=== PATIENT | female | born 1975 | race Caucasian/White ===

== ENCOUNTER 2024-03-31 22:47 | Emergency (ER) | payer OTHER, SELFPAY ==
[2024-03-31 22:48] VITALS: PULSE 105; RESP 16; TEMP 36.9; O2SAT 94; BMI 29.2
[2024-03-31 22:53] VITALS: BP 153/87
--- NOTE | 2024-03-31 22:53 | EKG12_ITS ---
Test Reason : CP Blood Pressure : */* mmHG Vent. Rate : 105 BPM Atrial Rate : 105 BPM P-R Int : 150 ms QRS Dur : 90 ms QT Int : 358 ms P-R-T Axes : 70 76 86 degrees QTcB Int : 473 ms Sinus tachycardia Nonspecific ST abnormality Abnormal ECG Confirmed by ELLY HAMEED, BREANNA ([id number]), video editor TIA BARBA ([id number]) on 04/02/2024 6:14:38 AM Referred By: Confirmed By: BREANNA SANABRIA MD
[2024-03-31 23:15] LABS: Absolute Lymphocyte Count 8.11 X10^3/uL (0.83-4.51); Absolute Neutrophil Count 12.9 X10^3/uL (2.0-7.7); Basophil# 0.11 X10^3/uL; Basophil% 0.5 % (0-1); Eosinophil# 0.29 X10^3/uL; Eosinophils% 1.2 % (0-5); Hematocrit 37.9 % (37-47); Lymphocyte # 8.11 X10^3/ul (0.83-4.51); Lymphocyte % 34.7 % (19-41); Mean Corp Hgb Conc 31.7 g/dL (32-36); Mean Corpuscular Hgb 27.9 pg (27.0-32.0); Mean Corpuscular Volume 88.1 fL (81-99); Monocyte# 1.79 X10^3/uL; Monocyte% 7.7 % (0-10); NRBC Flagged by Analyzer 0 % (0-5); Neutrophil # 12.93 X10^3/uL (2.7-7.7); Neutrophil % 55.3 % (47-70); POSITIVE DIFFERENTIAL YES; POSITIVE MORPHOLOGY YES; Platelet Count 568 K/mm3 (150-450); RBC Distribution Width CV 16.3 % (11.6-14.6); RBC Distribution Width SD 52.7 fl (35.1-43.9); White Blood Count 23.4 K/mm3 (4.4-11.0)
[2024-03-31 23:17] LABS: Differential Indicated SCAN CRITERIA MET
--- NOTE | 2024-03-31 23:17 | RAD_ITS ---
STUDY: X-RAY CHEST REASON FOR EXAM: Female, 49 years old. chest pain TECHNIQUE: Single AP portable view of the chest. COMPARISON: None. FINDINGS: The lungs are clear and expanded. There is no demonstrated pleural abnormality. There is moderate cardiac enlargement. Normal mediastinum and florence. Normal visualized pulmonary arteries. Normal visualized aortic arch and descending thoracic aorta. Normal visualized thoracic spine. Normal visualized ribs, clavicles, and shoulders. There is no demonstrated abnormality of the visualized soft tissue structures of the upper abdomen. RAD/Chest 1 View (Portable) IMPRESSION: No active disease. Cardiomegaly. Electronically Signed: Osei Mcpherson MD at 23:29 EST ,
[2024-03-31 23:37] LABS: Anion Gap 6 (5-15); BUN 4 mg/dL (7-18); BUN/Creat Ratio 9.8 RATIO (10-20); Chloride 105 mmol/L (98-107); Creatinine, Serum 0.41 mg/dL (0.55-1.02); EST Glomerular Filtration Rate 175 mL/min (>60); Est Glom Filt Rate - Afr Amer 212 mL/min (>60); Estimated Creatinine Clearance 145.47 ml/min; Glucose 130 mg/dL (74-106); Potassium 3.8 mmol/L (3.5-5.1); Sodium Level 137 mmol/L (136-145); Troponin-I HS (w/2H Reflex) 16 pg/mL (3.0-54.0)
--- NOTE | 2024-03-31 23:46 | CT_ITS ---
EXAM: CT ANGIOGRAPHY CHEST WITHOUT AND WITH INTRAVENOUS CONTRAST CLINICAL INDICATION: chest pain TECHNIQUE: Helically acquired angiography images were obtained of the chest without and with intravenous contrast. CTDIvol = ( 12.84 ) mGy, DLP = ( 441.24 ) mGycm This CT exam was performed using one or more of the following dose reduction techniques: automated exposure control, adjustment of the mA and/or kV according to patient size, and/or use of iterative reconstruction technique. MIP reconstructed images were created and reviewed. CONTRAST: IV 100mL [id number] COMPARISON: No relevant prior studies available. FINDINGS: PULMONARY ARTERIES: Unremarkable. Normal in caliber. No evidence of pulmonary embolism. No PE. AORTA: Unremarkable. No aortic aneurysm or dissection. GREAT VESSELS OF AORTIC ARCH: Unremarkable. Normal in caliber. No evidence of dissection. LUNGS AND PLEURAL SPACES: Focal parenchymal scarring at the inferior lingula and posterior lower lobes. No consolidation. Moderate centrilobular emphysema. No mass. No pleural effusion or pneumothorax. HEART: Unremarkable. No significant coronary artery calcifications. No cardiomegaly or pericardial effusion. MEDIASTINUM: Unremarkable. Esophagus is unremarkable. No hiatal hernia. No mediastinal or hilar adenopathy. THYROID: Thyroid is unremarkable. BONES/JOINTS: Degenerative changes of the spine. No unusual lytic or sclerotic lesions of bone. SOFT TISSUES: Soft tissues are unremarkable. 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 CT/CTA Chest W/WO Contrast IMPRESSION: 1. No PE, pneumonia or aortic dissection. 2. No other acute disease. 3. Ancillary findings as above. AIDOC was utilized to assist in identifying pertinent positive findings. Electronically Signed: Josep Conroy MD at 3:12 EST ,
[2024-03-31 23:48] VITALS: BP 147/99; PULSE 104; RESP 18; O2SAT 98
[2024-03-31 23:50] LABS: Differential Comment SCANNED
[2024-04-01 00:03] LABS: Magnesium 1.7 mg/dL (1.6-2.6)
[2024-04-01] MEDS: 0.9% Normal Saline (1000mL) 1,000 ML 999 ML IV (00:28)
--- NOTE | 2024-04-01 00:56 | ED.RN ---
PT. REFUSED TO HAVE IV IN LEFT WRIST USED FOR CT. NEW IV PLACED.
[2024-04-01 01:00] VITALS: PULSE 91; RESP 17; O2SAT 93
[2024-04-01 01:11] LABS: Reflex Troponin-HS? (from REC) Y
[2024-04-01] MEDS: Pregabalin 75 MG Capsule 150 MG PO (01:55)
[2024-04-01 02:00] VITALS: PULSE 96; RESP 14; O2SAT 94
[2024-04-01 02:00] LABS: Troponin-I HS 18 pg/mL (3.0-54.0)
--- NOTE | 2024-04-01 02:42 | ED.RN ---
TALKED TO CT ABOUT PROLONGED IMAGING READ TIME. RESPONSE, WE JUST CALLED THEM
[2024-04-01 03:00] VITALS: BP 139/77; PULSE 91; RESP 16; O2SAT 95
--- NOTE | 2024-04-01 03:23 | EX.ED.DYSGE1 ---
HPI History of Present Illness Chief Complaint: Chest Pain Informant: patient Narrative Narrative: Patient is a 49-year-old female with past medical history of hypertension hyperlipidemia and diabetes psoriasis and psoriatic arthritis. She states she typically lives in [place] but came up here for the holidays to visit her son. She states that she ran out of her Lyrica which she takes 3 times a day and has not had it for the past 2 days. Today she started with midsternal chest discomfort that is sharp in nature that she states radiates towards her back. She also reports feeling anxious and generalized fatigue. She denies any previous history of DVT/PE and she denies any previous need for cardiac intervention such as stent or bypass but with her recent travel and now worsening symptoms she presents for evaluation [facility] Home Medications ?Medication ?Instructions ?Recorded ?Last Taken ?Type pregabalin 150 mg capsule (Lyrica) 150 mg PO TID 14 days #42 caps 04/01/24 Unknown Rx Allergy/AdvReac Type Severity Reaction Status Date / Time bee pollen Allergy Severe Anaphylaxis Verified 03/31/24 22:54 benzonatate Allergy Intermediate Hives Verified 03/31/24 22:54 midazolam (From Versed) Allergy Intermediate SOB Verified 03/31/24 22:54 penicillin G Allergy Intermediate Hives Verified 03/31/24 22:54 shellfish derived Allergy Intermediate Anaphylaxis Verified 03/31/24 22:54 latex AdvReac Intermediate Rash Verified 03/31/24 22:54 moxifloxacin AdvReac Intermediate Abd Verified 03/31/24 22:54 cramps/diarrhea Social History Smoking Status: Never smoker [facility] ED Constitutional Constitutional ED: Denies chills or fever(s) Eyes Eyes: Denies blurry vision or change in vision ENT ENT ED: Denies sore throat Cardiovascular Cardiovascular: Reports chest pain and racing heartbeat; Denies palpitations Respiratory/Chest Respiratory/Chest: Denies cough or dyspnea Gastrointestinal Gastrointestinal: Reports nausea; Denies abdominal pain, diarrhea or vomiting Genitourinary Genitourinary ED: Denies dysuria Musculoskeletal Musculoskeletal: Reports back pain Integumentary Denies rash Neurologic Neurologic: Reports weakness; Denies headache(s) Hematologic/Lymphatic Hematologic/Lymphatic: Denies easy bleeding or easy bruising EXAM Physical Exam Const Vital Signs: 03/31/24 22:48 03/31/24 22:53 03/31/24 22:53 Temperature 98.4 F Temperature Source Oral Pulse Rate 105 H Respiratory Rate 16 Respiratory Effort Blood Pressure 153/87 H Blood Pressure Mean 109 Pulse Ox 94 Oxygen Delivery Method Room Air Room Air 03/31/24 22:53 03/31/24 23:48 04/01/24 01:00 Temperature Temperature Source Pulse Rate 104 H 91 Respiratory Rate 18 17 Respiratory Effort Normal Non-Labored Blood Pressure 147/99 H Blood Pressure Mean 115 Pulse Ox 98 93 Oxygen Delivery Method Room Air 04/01/24 02:00 04/01/24 03:00 04/01/24 03:38 Temperature 98.1 F Temperature Source Pulse Rate 96 91 91 Respiratory Rate 14 16 16 Respiratory Effort Blood Pressure 139/77 H 139/77 H Blood Pressure Mean 97 97 Pulse Ox 94 95 95 Oxygen Delivery Method Room Air Room Air Positive well nourished and well developed General Appearance ED: well developed HEENT HEENT Narrative: Normocephalic atraumatic No tongue or lip swelling no oral lesions no airway edema or compromise No signs of infection noted in the posterior pharynx Eyes PERRL and EOMs intact bilaterally General Eye ED: Negative for scleral icterus Neck supple and no JVD Neck Narrative: No nuchal rigidity or meningeal signs Chest Wall Chest Narrative: There is reproducible anterior chest wall pain with palpation but patient states this is different from the pain she has been experiencing No bony deformity or crepitance noted Resp normal respiratory effort and clear to auscultation bilaterally Cardio regular rhythm Rate: tachycardic and other Other Details: Tachycardic rate with regular rhythm No murmurs rubs or gallops Radial and carotid pulses are equal and symmetric No carotid bruit noted GI normal to inspection, nondistended, normoactive bowel sounds, non-tender, non-distended and no masses Auscultation: normoactive bowel sounds Palpation: soft Back/Spine Back/Spine Narrative: No bony deformity or step-off of the thoracic or lumbar spine no midline tenderness to palpation Extremity normal to inspection Extremity Narrative: No asymmetric edema no pitting edema negative Homans' sign bilaterally Neuro oriented x3, CN's II-XII intact bilaterally and no sensory deficits noted Sensorium / Orientation: alert Motor Exam: strength 5/5 throughout Psych Mood & Affect: anxious Skin Skin Narrative: Patient has erythematous areas of skin breakdown consistent with psoriasis No secondary findings to suggest infection MDM MDM MDM Narrative Medical decision making narrative: Patient arrived to the ER hypertensive and slightly tachycardic but otherwise with stable vitals. With her history of high blood pressure high cholesterol diabetes she does have risk factors for coronary artery disease and therefore in order to rule out acute coronary syndrome an EKG and troponin were ordered. In order to ensure there is no lung pathology causing her chest pain such as pneumonia or pneumothorax a chest x-ray was obtained as well. EKG revealed sinus tachycardia without ischemic findings. Chest x-ray revealed no acute lung pathology. Initial troponin was 16 delta was 18 indicating a flat trend going against acute coronary syndrome. As the patient is tachycardic and recently traveled to [place] from [place] there is concern for potential DVT/PE and therefore I did elect to perform a CTA of her chest to look for dissection versus pulmonary embolus versus missed pneumonia as her white count is elevated at 23. CTA revealed no clinically significant findings. The patient reported she had not had her Lyrica for 2 days and her tachycardia anxiety and nausea and chest comfort very well could be withdrawal symptoms. Therefore she was given her normal Lyrica dose. Following administration of the medication the patient reported resolution of her symptoms. Therefore at this time as her overall workup is negative and patient reports resolution of her symptoms with provided medication there is no need for further evaluation in the ER or admission and she is otherwise safe for discharge History & Record Review Discussion w/independent historian: Patient and Family Lab Data Attestation: I reviewed the patient's lab results. Labs: Laboratory Results - last 24 hr 03/31/24 04/01/24 23:09 01:35 WBC 23.4 H RBC 4.30 Hgb 12.0 Hct 37.9 MCV 88.1 MCH 27.9 MCHC 31.7 L RDW Std Deviation 52.7 H RDW Coeff of Kristin 16.3 H Plt Count 568 H MPV 11.0 Immature Gran % (Auto) 0.600 Neut % (Auto) 55.3 Lymph % (Auto) 34.7 [place] % (Auto) 7.7 Eos % (Auto) 1.2 Baso % (Auto) 0.5 Absolute Neuts (auto) 12.9 H Absolute Lymphs (auto) 8.11 H Nucleated RBC % 0 Differential Comment SCANNED Sodium 137 Potassium 3.8 Chloride 105 Carbon Dioxide 26.0 Anion Gap 6 BUN 4 L Creatinine 0.41 L Estim Creat Clear Calc 145.47 Est GFR (MDRD) Af Amer 212 Est GFR (MDRD) Non-Af 175 BUN/Creatinine Ratio 9.8 L Glucose 130 H Calcium 9.0 Magnesium 1.7 Troponin I High Sens 16 18 Radiography Diagnostic Testing: Clinical Impression(s) from Imaging Studies Chest X-Ray 03/31/24 23:17 IMPRESSION: No active disease. Cardiomegaly. Electronically Signed: Osei Mcpherson MD at 23:29 EST , Chest CTA 03/31/24 23:46 IMPRESSION: 1. No PE, pneumonia or aortic dissection. 2. No other acute disease. 3. Ancillary findings as above. AIDOC was utilized to assist in identifying pertinent positive findings. Electronically Signed: Josep Conroy MD at 3:12 EST , Chest x-ray as interpreted by the emergency medicine physician reveals no acute infiltrate pneumothorax or pleural effusion Discharge Plan Triage Chief Complaint: Chest Pain ED Provider: Josep Zhang Dx/Rx/DC Orders Clinical Impression: Nonspecific chest pain, Medication withdrawal, Psoriatic arthritis, Hypertension Instructions: ED Chest Pain, Uncertain Cause Prescriptions: New pregabalin [Lyrica] 150 mg capsule 150 mg PO TID 14 Days Qty: 42 0RF Primary Care Provider: Care Physician,No Primary Referrals: Care Physician,No Primary [Primary Care Provider] - Activity Restrictions/Additional Instructions: Your workup showed no sign of heart damage blood clot pneumonia or dissection. Symptoms are most likely related to medication withdrawal from your Lyrica. A new prescription has been sent to the [facility] in [facility] and begin taking as previously directed. Return to the ER should you have any further concerns Print Language: Bol[place]ian Disposition Disposition: Home, Self Care Discharge Date/Time: 04/01/24 03:39
[2024-04-01 03:38] VITALS: BP 139/77; PULSE 91; RESP 16; TEMP 36.7; O2SAT 95
== END 2024-04-01 03:39 | disposition home or self-care (01) ==
PROVIDERS: Emergency Provider Emergency Medicine; Visit Provider Emergency Medicine
DX: R07.9 Chest pain, unspecified (principal); L40.50 Arthropathic psoriasis, unspecified; E11.9 Type 2 diabetes mellitus without complications; I10 Essential (primary) hypertension
CPT/HCPCS: 71045; 71275; 80048; 83735; 84484; 85025; 87631; 93005; 99284; Q9967; A4216